=== PATIENT | female | born 1990 | race African-American/Black ===

== ENCOUNTER 2020-01-21 14:58 | Emergency (ER) | payer MEDICAID, OTHER ==
[~2020-01-21] VITALS: Ht 160 cm; Wt 47.0 kg
[2020-01-21] MEDS ORDERED: SODIUM CHLORIDE 0.9% 1,000 ML IV ONE (15:34)
[2020-01-21] MEDS ORDERED: ACETAMINOPHEN 325MG TABLET PO ONE (15:45)
[2020-01-21 16:08] LABS: CLARITY URINE TURBID (CLEAR); COLOR URINE YELLOW (YELLOW); KETONES URINE NEGATIVE (NEGATIVE); LEUKOCYTE ESTERASE URINE TRACE (NEGATIVE); NITRITE URINE NEGATIVE (NEGATIVE); OCCULT BLOOD URINE NEGATIVE (NEGATIVE); PH URINE 8.5 (4.5-8.0); PROTEIN URINE NEGATIVE (NEGATIVE); SPECIFIC GRAVITY URINE 1.019 (1.005-1.030); UROBILINOGEN URINE 0.2 E.U./dL (0.2-1.0)
[2020-01-21 16:19] LABS: BASOPHILS % 1.1 % (0.0-2.0); EOSINOPHILS % 0.6 % (0.0-5.0); HEMOGLOBIN. 12.5 g/dL (12.0-16.0); MEAN CORPUSCULAR HEMOGLOBIN 30.6 pg (28.0-32.0); MEAN CORPUSCULAR VOLUME 87.8 fL (81.0-99.0); MEAN PLATELET VOLUME 8.9 fl (7.4-10.4); MONOCYTES % 6.5 % (2.0-8.0); NEUTROPHILS % 68.8 % (40.0-76.0); PLATELET 233 x1000/uL (130-400); RED CELL DISTRIBUTION WIDTH 12.9 % (11.6-14.6)
[2020-01-21 16:27] LABS: CHLORIDE 109 mEq/L (98-107)
[2020-01-21 16:51] LABS: B-HCG QUANTITATIVE 74306 mIU/mL (<3)
[2020-01-21 17:12] VITALS: BP 120/75
== END 2020-01-21 17:16 | disposition home or self-care (01) ==
LOC: ER 15:58
DX: O23.41 Unspecified infection of urinary tract in pregnancy, first trimester (principal); O20.0 Threatened abortion; O21.0 Mild hyperemesis gravidarum; Z3A.01 Less than 8 weeks gestation of pregnancy; O26.891 Other specified pregnancy related conditions, first trimester; K59.00 Constipation, unspecified; R03.0 Elevated blood-pressure reading, without diagnosis of hypertension; M79.18 Myalgia, other site; R53.1 Weakness; Y03.0XXA Assault by being hit or run over by motor vehicle, initial encounter; Y93.89 Activity, other specified; Y92.488 Other paved roadways as the place of occurrence of the external cause
CPT/HCPCS: 36415; 76801; 80053; 81003; 81025; 84702; 85025; 93005; 99285; J7030

== ENCOUNTER 2020-02-08 18:20 | Inpatient (IN) | payer MEDICAID ==
[~2020-02-08] VITALS: Ht 160 cm; Wt 46.7 kg
[2020-02-08] MEDS ORDERED: ACETAMINOPHEN 325MG TABLET PO STA (19:42)
[2020-02-08 21:25] LABS: BASOPHILS % 0.6 % (0.0-2.0); EOSINOPHILS % 0.4 % (0.0-5.0); HEMATOCRIT. 36.5 % (36.0-48.0); HEMOGLOBIN. 12.9 g/dL (12.0-16.0); LYMPHOCYTES % 24.9 % (20.0-50.0); MEAN CORPUSCULAR VOLUME 87.6 fL (81.0-99.0); MEAN PLATELET VOLUME 8.6 fl (7.4-10.4); MONOCYTES % 5.9 % (2.0-8.0); NEUTROPHILS % 68.2 % (40.0-76.0); PLATELET 202 x1000/uL (130-400); RED BLOOD CELL COUNT 4.17 mill/uL (4.2-5.4); RED CELL DISTRIBUTION WIDTH 12.7 % (11.6-14.6)
[2020-02-08 21:33] LABS: CHLORIDE 103 mEq/L (98-107)
[2020-02-09] MEDS ORDERED: ONDANSETRON 4MG ODT PO ONE
[2020-02-09 00:57] LABS: CLARITY URINE CLOUDY (CLEAR); COLOR URINE YELLOW (YELLOW); KETONES URINE 4+ (NEGATIVE); LEUKOCYTE ESTERASE URINE 1+ (NEGATIVE); NITRITE URINE NEGATIVE (NEGATIVE); OCCULT BLOOD URINE NEGATIVE (NEGATIVE); PROTEIN URINE NEGATIVE (NEGATIVE); SPECIFIC GRAVITY URINE 1.022 (1.005-1.030); UROBILINOGEN URINE 0.2 E.U./dL (0.2-1.0)
[2020-02-09] MEDS ORDERED: CEFOXITIN SODIUM 1 G in DEXTROSE 5% WATER 50 ML IV SCH (02:00)
[2020-02-09] MEDS ORDERED: AZITHROMYCIN 500 MG TABLET PO ONE (02:00)
[2020-02-09] MEDS ORDERED: CEFUROXIME SODIUM IV SCH (02:30)
[2020-02-09] MEDS ORDERED: DEXT 5% IV SCH (02:30)
[2020-02-09] MEDS ORDERED: WATER IV SCH (02:30)
[2020-02-09] MEDS ORDERED: CEFUROXIME AXETIL 500MG TABLET PO ONE (03:00)
[2020-02-09] MEDS ORDERED: CEFUROXIME AXETIL 250MG TABLET PO SCH (03:15)
[2020-02-09 05:00] VITALS: BP 104/60
[2020-02-09] MEDS ORDERED: ACETAMINOPHEN 325MG TABLET PO PRN (05:15)
[2020-02-09] MEDS: ONDANSETRON HCL 4MG/2ML INJ IV PRN ×3 (05:16→09:36)
[2020-02-09 08:00] VITALS: BP 95/52
[2020-02-09] MEDS ORDERED: ONDANSETRON HCL 4MG/2ML INJ IV PRN (09:00)
[2020-02-09] MEDS ORDERED: DIPHENHYDRAMINE 50MG/ML VIAL IV PRN (09:00)
[2020-02-09] MEDS ORDERED: AZITHROMYCIN 250 MG TABLET PO SCH (09:27)
[2020-02-09] MEDS: CEFUROXIME AXETIL 250MG TABLET PO SCH ×2 (11:29→20:37)
[2020-02-09] MEDS: SODIUM CHLORIDE 0.9% 1,000 ML IV SCH (11:31)
[2020-02-09 12:00] VITALS: BP 116/67
[2020-02-09 20:00] VITALS: BP 119/64
[2020-02-09] MEDS ORDERED: CEFTRIAXONE 1 G PREMIX 50 ML IV SCH (20:45)
[2020-02-09] MEDS ORDERED: CEFTRIAXONE 1,000 MG in DEXTROSE 5% WATER 50 ML IV SCH (22:00)
[2020-02-09] MEDS ORDERED: CLINDAMYCIN 600 MG in DEXTROSE 5% WATER 50 ML IV SCH (22:15)
[2020-02-09] MEDS: CLINDAMYCIN 600MG PREMIX 50 ML IV SCH (22:38)
[2020-02-09] MEDS ORDERED: GENTAMICIN 100MG PREMIX 100 ML IV NR (23:45)
[2020-02-10] VITALS: BP 98/63
[2020-02-10] MEDS ORDERED: GENTAMICIN 100MG PREMIX 50 ML IV NR (00:18)
[2020-02-10 04:00] VITALS: BP 98/56
[2020-02-10] MEDS: SODIUM CHLORIDE 0.9% 1,000 ML IV SCH (06:21)
[2020-02-10] MEDS: CLINDAMYCIN 600MG PREMIX 50 ML IV SCH ×2 (06:21→14:01)
[2020-02-10 06:49] LABS: BASOPHILS % 0.7 % (0.0-2.0); EOSINOPHILS % 0.8 % (0.0-5.0); HEMATOCRIT. 31.7 % (36.0-48.0); HEMOGLOBIN. 11.4 g/dL (12.0-16.0); LYMPHOCYTES % 31.8 % (20.0-50.0); MEAN CORPUSCULAR HEMOGLOBIN 30.7 pg (28.0-32.0); MEAN CORPUSCULAR VOLUME 85.8 fL (81.0-99.0); MEAN PLATELET VOLUME 8.8 fl (7.4-10.4); MONOCYTES % 8.3 % (2.0-8.0); NEUTROPHILS % 58.4 % (40.0-76.0); PLATELET 195 x1000/uL (130-400); RED CELL DISTRIBUTION WIDTH 12.5 % (11.6-14.6)
[2020-02-10 07:03] LABS: CHLORIDE 108 mEq/L (98-107)
[2020-02-10 07:17] LABS: HDL CHOLESTEROL 51 mg/dL (40-59); LDL CHOLESTEROL 34 mg/dL (5-100)
[2020-02-10 08:00] VITALS: BP 91/48
[2020-02-10] MEDS: GENTAMICIN 80MG PREMIX 100 ML IV SCH ×2 (08:27→16:11)
[2020-02-10 12:00] VITALS: BP 101/65
[2020-02-10 16:00] VITALS: BP 98/62
[2020-02-10] MEDS ORDERED: CEFTRIAXONE 1,000 MG in DEXTROSE 5% WATER 50 ML IV SCH (20:00)
[2020-02-12 04:08] LABS: NEISSERIA GONORRHOEAE NAA Negative (Negative)
== END 2020-02-10 19:14 | disposition home or self-care (01) | DRG 566 ==
LOC: ER 18:20 → ENRESERV 02-09 03:55 → 6EST 02-09 05:56
PROVIDERS: ADMIT Internal Medicine; ATTEND Internal Medicine
DX: O21.0 Mild hyperemesis gravidarum (principal); O23.591 Infection of other part of genital tract in pregnancy, first trimester; O99.511 Diseases of the respiratory system complicating pregnancy, first trimester; J45.909 Unspecified asthma, uncomplicated; O23.41 Unspecified infection of urinary tract in pregnancy, first trimester; G43.809 Other migraine, not intractable, without status migrainosus; O99.351 Diseases of the nervous system complicating pregnancy, first trimester; Z3A.09 9 weeks gestation of pregnancy; Z79.899 Other long term (current) drug therapy; Z68.1 Body mass index [BMI] 19.9 or less, adult
CPT/HCPCS: 36415; 76801; 80053; 80061; 81003; 84443; 85025; 87210; 87491; 87591; 93005; 93970; 99285; G0378; J0694; J0696; J0697; J1580; J2405; J3490; J7030; J7060; Q0162

== ENCOUNTER 2020-02-27 09:49 | Emergency (ER) | payer MEDICAID ==
[~2020-02-27] VITALS: Ht 160 cm; Wt 46.7 kg
[2020-02-27 11:28] LABS: BASOPHILS % 0.5 % (0.0-2.0); EOSINOPHILS % 0.3 % (0.0-5.0); HEMATOCRIT. 35.9 % (36.0-48.0); HEMOGLOBIN. 12.6 g/dL (12.0-16.0); LYMPHOCYTES % 21.4 % (20.0-50.0); MEAN CORPUSCULAR HEMOGLOBIN 30.8 pg (28.0-32.0); MEAN CORPUSCULAR VOLUME 87.6 fL (81.0-99.0); MEAN PLATELET VOLUME 8.7 fl (7.4-10.4); MONOCYTES % 6.3 % (2.0-8.0); NEUTROPHILS % 71.5 % (40.0-76.0); PLATELET 207 x1000/uL (130-400); RED CELL DISTRIBUTION WIDTH 12.5 % (11.6-14.6)
[2020-02-27 11:41] LABS: PROTHROMBIN TIME 10.4 sec (9.6-11.0)
[2020-02-27 11:42] LABS: CHLORIDE 107 mEq/L (98-107)
[2020-02-27] MEDS ORDERED: ACETAMINOPHEN 325MG TABLET PO ONE (12:00)
[2020-02-27 12:06] LABS: B-HCG QUANTITATIVE 69632 mIU/mL (<3)
[2020-02-27] MEDS ORDERED: ONDANSETRON HCL 4MG/2ML INJ IV ONE (12:45)
[2020-02-27 14:47] VITALS: BP 112/73
== END 2020-02-27 15:16 | disposition home or self-care (01) ==
LOC: ER 09:49
DX: O46.91 Antepartum hemorrhage, unspecified, first trimester (principal); O26.891 Other specified pregnancy related conditions, first trimester; R10.9 Unspecified abdominal pain; R51 Headache; J45.909 Unspecified asthma, uncomplicated; G43.909 Migraine, unspecified, not intractable, without status migrainosus; Z3A.12 12 weeks gestation of pregnancy
CPT/HCPCS: 36415; 76801; 76817; 80053; 81025; 84702; 85025; 85610; 86850; 86900; 86901; 96374; 99285; J2405

== ENCOUNTER 2020-04-02 14:55 | Emergency (ER) | payer MEDICAID ==
[~2020-04-02] VITALS: Ht 160 cm; Wt 47.0 kg
[2020-04-02] MEDS ORDERED: ACETAMINOPHEN 325MG TABLET PO STA (18:14)
[2020-04-02 19:10] LABS: BASOPHILS % 0.5 % (0.0-2.0); EOSINOPHILS % 0.7 % (0.0-5.0); HEMOGLOBIN. 12.3 g/dL (12.0-16.0); LYMPHOCYTES % 18.4 % (20.0-50.0); MEAN PLATELET VOLUME 9.5 fl (7.4-10.4); MONOCYTES % 5.9 % (2.0-8.0); NEUTROPHILS % 74.5 % (40.0-76.0); PLATELET 182 x1000/uL (130-400); RED BLOOD CELL COUNT 3.98 mill/uL (4.2-5.4); RED CELL DISTRIBUTION WIDTH 12.9 % (11.6-14.6)
[2020-04-02 19:13] LABS: CHLORIDE 107 mEq/L (98-107)
[2020-04-02 19:18] LABS: D-DIMER 0.67 mg/L FEU (<0.50); PARTIAL THROMBOPLASTIN TIME 24.5 sec (23.4-31.0); PROTHROMBIN TIME 10.2 sec (9.6-11.0)
[2020-04-02 19:26] LABS: CLARITY URINE CLEAR (CLEAR); COLOR URINE DARK YELLOW (YELLOW); KETONES URINE 3+ (NEGATIVE); LEUKOCYTE ESTERASE URINE TRACE (NEGATIVE); NITRITE URINE POSITIVE (NEGATIVE); OCCULT BLOOD URINE NEGATIVE (NEGATIVE); PROTEIN URINE NEGATIVE (NEGATIVE); SPECIFIC GRAVITY URINE 1.025 (1.005-1.030); UROBILINOGEN URINE 0.2 E.U./dL (0.2-1.0)
[2020-04-02] MEDS ORDERED: POTASSIUM CHLORIDE 20MEQ TABLET SR PO ONE (19:45)
[2020-04-02 20:10] LABS: B-HCG QUANTITATIVE 15642 mIU/mL (<3)
[2020-04-02 20:38] VITALS: BP 109/63
== END 2020-04-02 20:39 | disposition home or self-care (01) ==
LOC: ER 14:55
DX: O20.0 Threatened abortion (principal); Z3A.17 17 weeks gestation of pregnancy
CPT/HCPCS: 36415; 71045; 76805; 80053; 81003; 81025; 83880; 84484; 84702; 85025; 85379; 86850; 86900; 93005; 93970; 99285

== ENCOUNTER 2020-06-10 17:25 | Observation (INO) | payer MEDICAID ==
[~2020-06-10] VITALS: Ht 160 cm; Wt 52.6 kg
[2020-06-10 19:12] LABS: CLARITY URINE TURBID (CLEAR); COLOR URINE YELLOW (YELLOW); KETONES URINE 1+ (NEGATIVE); LEUKOCYTE ESTERASE URINE 3+ (NEGATIVE); NITRITE URINE NEGATIVE (NEGATIVE); OCCULT BLOOD URINE TRACE (NEGATIVE); PH URINE 7.5 (4.5-8.0); PROTEIN URINE 2+ (NEGATIVE); SPECIFIC GRAVITY URINE 1.017 (1.005-1.030)
[2020-06-10] MEDS ORDERED: LACTATED RINGERS 1,000 ML IV SCH (19:15)
[2020-06-10] MEDS ORDERED: TERBUTALINE SULFATE 1MG/ML VIAL SUBCUT NR (20:00)
[2020-06-10] MEDS ORDERED: PNV1TABL76 PO (22:25)
== END 2020-06-10 22:39 | disposition home or self-care (01) ==
LOC: 8 EST A/PP 17:25
PROVIDERS: ADMIT Obstetrics & Gynecology; ATTEND Obstetrics & Gynecology
DX: O26.892 Other specified pregnancy related conditions, second trimester (principal); K62.89 Other specified diseases of anus and rectum; Z3A.27 27 weeks gestation of pregnancy
CPT/HCPCS: 59025; 76805; 81003; 82731; 87077; 87086; 87186; 96360; 96361; 96372; G0378; J3105; 59412; 99281

== ENCOUNTER 2020-08-24 23:12 | Inpatient (IN) | payer MEDICAID ==
[~2020-08-24] VITALS: Ht 160 cm; Wt 56.7 kg
[~2020-08-24 23:12] MED LIST: PNV1TABL76 PO
[2020-08-25] MEDS ORDERED: LIDOCAINE HCL 1% 20ML VIAL (Pyxis) INJ INFIL SCH (00:15)
[2020-08-25] MEDS ORDERED: RHO(D) IMMUNE GLOBULIN 300 MCG/SYR IM ONE (00:15)
[2020-08-25] MEDS: DEXT 5%/LACTATED RINGERS 1,000 ML IV SCH ×2 (00:30→01:57)
[2020-08-25] MEDS: BUTORPHANOL TARTRATE 2 MG/ML VIAL IV PRN ×2 (00:50→02:51)
[2020-08-25 00:51] LABS: BASOPHILS % 0.7 % (0.0-2.0); EOSINOPHILS % 1.2 % (0.0-5.0); HEMATOCRIT. 33.7 % (36.0-48.0); HEMOGLOBIN. 11.6 g/dL (12.0-16.0); LYMPHOCYTES % 25.3 % (20.0-50.0); MEAN CORPUSCULAR HEMOGLOBIN 27.9 pg (28.0-32.0); MEAN CORPUSCULAR VOLUME 80.9 fL (81.0-99.0); MEAN PLATELET VOLUME 10.1 fl (7.4-10.4); NEUTROPHILS % 63.8 % (40.0-76.0); PLATELET 198 x1000/uL (130-400); RED BLOOD CELL COUNT 4.16 mill/uL (4.2-5.4); RED CELL DISTRIBUTION WIDTH 13.8 % (11.6-14.6)
[2020-08-25 00:58] LABS: CLARITY URINE CLOUDY (CLEAR); COLOR URINE YELLOW (YELLOW); KETONES URINE TRACE (NEGATIVE); LEUKOCYTE ESTERASE URINE 3+ (NEGATIVE); NITRITE URINE NEGATIVE (NEGATIVE); OCCULT BLOOD URINE TRACE (NEGATIVE); PROTEIN URINE TRACE (NEGATIVE); SPECIFIC GRAVITY URINE 1.021 (1.005-1.030); UROBILINOGEN URINE 0.2 E.U./dL (0.2-1.0)
[2020-08-25] MEDS ORDERED: PENICILLIN G POTASSIUM 5 MMU in DEXT 5% WATER 100 ML IV SCH (01:00)
[2020-08-25 01:01] LABS: INR 0.9; PARTIAL THROMBOPLASTIN TIME 26.7 sec (23.4-31.0)
[2020-08-25 01:09] LABS: *AMPHETAMINES SCREEN URINE NEGATIVE (NEGATIVE); *BARBITURATES SCREEN URINE NEGATIVE (NEGATIVE)
[2020-08-25 01:10] LABS: *BENZODIAZEPINES SCREEN URINE NEGATIVE (NEGATIVE); *COCAINE SCREEN URINE NEGATIVE (NEGATIVE); CANNABINOID URINE SCREEN NEGATIVE (NEGATIVE); METHADONE URINE SCREEN NEGATIVE (NEGATIVE); OPIATES URINE SCREEN NEGATIVE (NEGATIVE); PHENCYCLIDINE URINE SCREEN NEGATIVE (NEGATIVE)
[2020-08-25 01:31] LABS: HEPATITIS B SURFACE ANTIGEN NEGATIVE
[2020-08-25] MEDS: DEXT 5%/LR + PITOCIN 20UNITS/L 1,000 ML IV SCH ×2 (02:44→04:09)
[2020-08-25] MEDS ORDERED: ACETAMINOPHEN 500MG TABLET PO PRN (05:00)
[2020-08-25] MEDS ORDERED: GLYCERIN/WITCH HAZEL LEAF MEDICATED PAD TOP PRN (05:00)
[2020-08-25] MEDS ORDERED: BENZOCAINE/LANOLIN/ALOE VERA SPRAY TOP PRN (05:00)
[2020-08-25] MEDS ORDERED: DIPHENHYDRAMINE 25MG CAPSULE PO PRN (05:00)
[2020-08-25] MEDS ORDERED: BISACODYL 10MG SUPP PR PRN (05:00)
[2020-08-25] MEDS ORDERED: IBUPROFEN 400MG TABLET PO PRN (05:00)
[2020-08-25] MEDS ORDERED: PENICILLIN G POTASSIUM 2.5 MMU in DEXTROSE 5% WATER 50 ML IV SCH (05:00)
[2020-08-25] MEDS ORDERED: DEXT 5%/LR + PITOCIN 20UNITS/L 1,000 ML IV SCH (05:00)
[2020-08-25 05:40] VITALS: BP 119/72
[2020-08-25 06:10] VITALS: BP 118/83
[2020-08-25 07:30] VITALS: BP 109/70
[2020-08-25] MEDS: PRENATAL VIT/FE FUMARATE/FA TABLET PO SCH (08:26)
[2020-08-25] MEDS: IBUPROFEN 800MG TABLET PO PRN ×2 (08:26→14:00)
[2020-08-25 14:00] VITALS: BP 110/72
[2020-08-25 19:45] VITALS: BP 120/72
[2020-08-25] MEDS ORDERED: DOCUSATE SODIUM 100MG CAPSULE PO SCH (21:00)
[2020-08-25] MEDS: SIMETHICONE 80MG TABLET CHEW PO SCH (21:18)
[2020-08-25] MEDS: MAGNESIUM/ALUMINUM HYDROXIDE/SIMETHICONE 30ML UDC PO SCH (21:18)
[2020-08-26] MEDS: IBUPROFEN 800MG TABLET PO PRN ×2 (01:51→17:45)
[2020-08-26 04:00] VITALS: BP 108/61
[2020-08-26 09:23] LABS: BASOPHILS % 0.3 % (0.0-2.0); EOSINOPHILS % 1.7 % (0.0-5.0); HEMATOCRIT. 33.1 % (36.0-48.0); HEMOGLOBIN. 10.9 g/dL (12.0-16.0); LYMPHOCYTES % 24.3 % (20.0-50.0); MEAN CORPUSCULAR HEMOGLOBIN 27.4 pg (28.0-32.0); MEAN CORPUSCULAR VOLUME 83.3 fL (81.0-99.0); MEAN PLATELET VOLUME 9.9 fl (7.4-10.4); MONOCYTES % 7.8 % (2.0-8.0); NEUTROPHILS % 65.9 % (40.0-76.0); PLATELET 164 x1000/uL (130-400); RED BLOOD CELL COUNT 3.97 mill/uL (4.2-5.4); RED CELL DISTRIBUTION WIDTH 14.1 % (11.6-14.6)
[2020-08-26 09:30] VITALS: BP 103/59
[2020-08-26] MEDS: MAGNESIUM/ALUMINUM HYDROXIDE/SIMETHICONE 30ML UDC PO SCH (09:45)
[2020-08-26] MEDS: PRENATAL VIT/FE FUMARATE/FA TABLET PO SCH (09:45)
[2020-08-26] MEDS: SIMETHICONE 80MG TABLET CHEW PO SCH (09:45)
[2020-08-26] MEDS: FERROUS SULFATE 325MG TABLET PO SCH ×2 (09:46→17:45)
[2020-08-26 15:00] VITALS: BP 115/70
[2020-08-26 22:00] VITALS: BP 115/72
[2020-08-27 05:26] VITALS: BP 110/57
[2020-08-27 11:00] VITALS: BP 113/64
[2020-08-27] MEDS: IBUPROFEN 800MG TABLET PO PRN (12:53)
[2020-08-27] MEDS: FERROUS SULFATE 325MG TABLET PO SCH (12:53)
[2020-08-27] MEDS: SIMETHICONE 80MG TABLET CHEW PO SCH (12:53)
== END 2020-08-27 16:00 | disposition home or self-care (01) | DRG 560 ==
LOC: OBSVTOIN 23:12 → 8 EST LDRP 23:12 → 8EST 08-25 05:30
PROVIDERS: ADMIT Obstetrics & Gynecology; ATTEND Obstetrics & Gynecology
PROC: 10E0XZZ Delivery of Products of Conception, External Approach (ICD-10-PCS; principal; 2020-08-25)
DX: O80 Encounter for full-term uncomplicated delivery (principal); Z3A.39 39 weeks gestation of pregnancy; Z37.0 Single live birth
CPT/HCPCS: 36415; 80305; 81003; 85025; 86592; 86703; 86762; 86850; 86900; 87077; 87186; 87340; 99281; G0378; J0595; J2540; J2590; J3490; J7060